=== PATIENT | male | born 2000 | race Caucasian/White ===

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

== ENCOUNTER 2021-09-27 16:05 | Emergency (ER) | payer OTHER ==
[~2021-09-27] VITALS: Ht 188 cm; Wt 82.6 kg
[2021-09-27 16:05] VITALS: BP 100/80
[~2021-09-27 16:05] MED LIST: IBUP-1022 PO
--- OUTSIDE RECORDS SUMMARY | 2021-09-27 16:16 | CCD ---
Author Author [facility] Address Unknown Phone Unavailable Support Name Relationship Address Phone ST Next Of Kin Unknown Unavailable UE Next Of Kin Unknown Unavailable LIO HAMMOND Next Of Kin [address] [place] [address] Re-disclosure Warning The records that you are about to access may contain information from federally-assisted alcohol or drug abuse programs. If such information is present, then the following federally mandated warning applies: This information has been disclosed to you from records protected by federal confidentiality rules (42 CFR part 2). The federal rules prohibit you from making any further disclosure of this information unless further disclosure is expressly permitted by the written consent of the person to whom it pertains or as otherwise permitted by 42 CFR part 2. A general authorization for the release of medical or other information is NOT sufficient for this purpose. The Federal rules restrict any use of the information to criminally investigate or prosecute any alcohol or drug abuse patient.The records that you are about to access may contain highly sensitive health information, the redisclosure of which is protected by Article 27-F of the [facility] Public Health law. If you continue you may have access to information: Regarding HIV / AIDS; Provided by facilities licensed or operated by the [facility] Office of Mental Health; or Provided by the [facility] Office for People With Developmental Disabilities. If such information is present, then the following [facility] mandated warning applies: This information has been disclosed to you from confidential records which are protected by state law. State law prohibits you from making any further disclosure of this information without the specific written consent of the person to whom it pertains, or as otherwise permitted by law. Any unauthorized further disclosure in violation of state law may result in a fine or skilled nursing sentence or both. A general authorization for the release of medical or other information is NOT sufficient authorization for further disc losure. Family History Family Member Name Family Member Gender Family Member Status Date o f Status Description Data Source(s) Unknown Male Problem [facility] ([facility]) Medications No Information Insurance Providers Payer name Policy type / Coverage type Policy ID Covered constitution party ID Covered constitution party's relationship to martino Policy Martino Plan Information Pupil Benefits (pr) Commercial [id number] Family Dependent [id number] Pupil Benefits (pr) Commercial 15 [id number] Family Dependent 15 Lifetime Benefit Solution Commercial [id number] Family Dependent [id number] Pupil Benefits (pr) Commercial [id number] Self [id number] Pupil Benefits (pr) Revolucionadolabs [id number] Self Ontela [employer] [id number] MO2 [id number] [employer] - Lifetime benefit Solutions P [id number] O [id number] [employer] [id number] MO2 [id number] [employer] Lifetime benefit [employer] S [id number] S [id number] [employer] Lif[employer] P [id number] O [id number] [employer] [id number] Problems, Conditions, and Diagnoses No Information Surgeries/Procedures No Information Results ID Date Data Source [id number] 06/30/2021 12:00:00 AM EDT [place] Name Value Range Interpretation Code Description Data Annie rce(s) Supporting Document(s) SARS-CoV2 Rapid Antigen Positive [facility] This lab was ordered by [facility] and reported by [facility]. Procedure Social History No Information
--- OUTSIDE RECORDS SUMMARY | 2021-09-27 22:06 | CCD ---
Author Author [facility] Address Unknown Phone Unavailable Support Name Relationship Address Phone ST Next Of Kin Unknown Unavailable UE Next Of Kin Unknown Unavailable LIO HAMMOND Next Of Kin [address] [place], [place] [address] Re-disclosure Warning The records that you are [...] is protected by Article 27-F of the [facility] Public Health law. If you continue you may have access to information: Regarding HIV / AIDS; Provided by facilities licensed or operated by the [facility] Office of Mental Health; or Provided by the [facility] Office for People With Developmental Disabilities. If such information is present, then the following [facility] mandated warning applies: This information has been [...] law may result in a fine or nursing home sentence or both. A general authorization for the release of medical or other information is NOT sufficient authorization for further disc losure. Family History Family Member Name Family Member Gender Family Member Status Date o f Status Description Data Source(s) Unknown Male Problem [facility] ([facility]) Medications No Information Insurance Providers Payer name Policy type / Coverage type Policy ID Covered green party ID Covered green party's relationship to martino Policy Martino Plan Information Pupil Benefits (pr) Commercial [id number] Family Dependent [id number] Pupil Benefits (pr) Commercial 15 [id number] Family Dependent 15 Pupil Benefits (pr) Commercial [id number] Self [id number] Lifetime Benefit Solution Commercial [id number] Family Dependent [id number] Pupil Benefits (pr) [place] [id number] Self Plyfe [employer] [id number] MO2 [id number] [employer] [id number] MO2 [id number] [employer] P [id number] O [id number] [employer] S [id number] S [id number] [employer] P [id number] O [id number] [employer] [id number] Problems, Conditions, and Diagnoses No Information Surgeries/Procedures No Information Results ID Date Data Source [id number] 06/30/2021 12:00:00 AM EDT [place] Name Value Range Interpretation Code Description Data Annie rce(s) Supporting Document(s) SARS-CoV2 Rapid Antigen Positive [facility] This lab was ordered by [facility] and reported by [facility]. Procedure Social History No Information
== END 2021-09-27 22:16 | disposition left against medical advice (07) ==
LOC: M ED 16:05
DX: Z53.29 Procedure and treatment not carried out because of patient's decision for other reasons (principal)